=== PATIENT | female | born 1980 | race Caucasian/White ===

== ENCOUNTER 2020-06-25 09:04 | Emergency (ER) | payer OTHER, BC, SELFPAY ==
[2020-06-25 09:18] VITALS: BP 110/66; PULSE 78; RESP 20; TEMP 36.5; O2SAT 100
--- NOTE | 2020-06-25 09:28 | ED.SKABFB ---
HPI - Skin/Abscess/Foreign Bdy General Chief complaint: Skin/Abscess/Foreign Body Stated complaint: rash Time Seen by Provider: 06/25/20 09:30 Source: patient Mode of arrival: ambulatory Limitations: no limitations History of Present Illness HPI narrative: Frances Romo is a 39 yo female with no PMH who comes here with a red rash around her mid drift bilaterally that is both itchy and uncomfortable it started on Tuesday. She has not used anything on the rash to this point because she wanted to make sure that we saw it without being treated Related Data Allergies Allergy/AdvReac Type Severity Reaction Status Date / Time Penicillins Allergy Unknown Swelling Verified 06/25/20 09:17 of Lip/Tongue/Throat metoclopramide AdvReac Unknown Other Verified 06/25/20 09:17 Review of Systems Review of Systems: Narrative: CONSTITUTIONAL: Denies fever, chills, sweats. EYES: Denies visual changes, redness, discharge. ENT: Denies rhinorrhea, congestion, sore throat, otalgia. CARDIOVASCULAR: Denies chest pain, palpitations, edema. RESPIRATORY: Denies dyspnea, wheezing, cough GASTROINTESTINAL: Denies abdominal pain, nausea, vomiting, diarrhea. GENITOURINARY: Denies dysuria, hematuria, abnormal discharge SKIN: Rash along mid drift bilaterally-red and raised NEUROLOGIC: Denies numbness, or focal weakness. PSYCHIATRIC: Denies anxiety or depression. [facility] Past Medical History Medical History No acute medical problems Family History Family History Mother Hypertension Social History Social History (Updated 06/25/20 @ 09:44 by Marry Tucker CNP) Smoking status: Never smoker Alcohol intake: current Comments At time of signature, I agree with nursing past medical, surgical, social and family history. There is no relevant family history pertinent to the presenting complaint. Exam Narrative: Exam Narrative: GENERAL: This is a well-nourished, well-developed patient, in mild distress. HEAD: normocephalic, atraumatic. EYES: Sclera clear/white. Vision is grossly intact. EARS: External ears normal, Hearing grossly intact. NOSE: External nose normal without nasal discharge, nares without redness, no rhinorrhea. THROAT: Mucous membranes moist, NECK: Neck supple, non-tender CARDIOVASCULAR: Regular rate and rhythm without murmurs, gallops, or rubs. RESPIRATORY: Clear to auscultation. Breath sounds equal bilaterally. No wheezes, rales, or rhonchi. GASTROINTESTINAL: Abdomen soft, SKIN: warm, intact with no suspicious lesions or rash, good texture and turgor. Red papules on the mid drift bilaterally, pruritic NEURO: awake, alert, and oriented to person, place and time. There were no obvious focal neurologic abnormalities. Steady gait EXTREMITIES: Normal range of motion. BACK: Nontender without deformity Course Course Emergency Course: Patient came to [facility] care with red pruritic rash along the mid drift that started a few days ago Started on Medrol Dosepak and hydrocortisone and Benadryl cream Follow-up with primary care Vital Signs Vital signs: Vital Signs Temperature 97.7 F 06/25/20 09:18 Pulse Rate 78 06/25/20 09:18 Respiratory Rate 20 06/25/20 09:18 Blood Pressure 110/66 06/25/20 09:18 Pulse Oximetry 100 06/25/20 09:18 Temperature 97.7 F 06/25/20 09:18 Pulse Rate 78 06/25/20 09:18 Respiratory Rate 20 06/25/20 09:18 Blood Pressure 110/66 06/25/20 09:18 Pulse Oximetry 100 06/25/20 09:18 MDM - Skin/Abscess/Foreign Bdy Differential Diagnosis Differential diagnosis: Likely abscess of skin or subcutaneous tissue, eczema, contact dermatitis and other Discharge Plan Discharge Clinical Impression: Contact dermatitis Qualifiers: Contact dermatitis type: irritant Contact dermatitis trigger: unspecified trigger Qualified Code(s): L24.9 - Irritant contact dermatitis,
== END 2020-06-25 09:54 | disposition home or self-care (01) ==
PROVIDERS: Emergency Provider Nurse Practitioner
DX: L24.9 Irritant contact dermatitis, unspecified cause (principal)
CPT/HCPCS: 99213; G0463

== ENCOUNTER 2024-02-12 12:16 | Emergency (ER) | payer OTHER, BC, SELFPAY ==
[2024-02-12 12:26] VITALS: BP 142/80; PULSE 74; RESP 16; TEMP 37.1; O2SAT 100
--- NOTE | 2024-02-12 12:26 | ED.GENADULT ---
HPI - General Adult General Chief complaint: Skin/Abscess/Foreign Body Stated complaint: R KNEE LACERATION Time Seen by Provider: 02/12/24 12:32 Source: patient, RN notes reviewed and old records reviewed Mode of arrival: ambulatory Limitations: no limitations History of Present Illness HPI narrative: patient presents with complaints of right knee wound. She reports that she fell in a reinforced in [place] about 5 days ago, has since soaked in a hot tub. She reports that she is noticing increased pain and some purulent drainage from the site. She is up-to-date on her tetanus. She denies all other injury and trauma. She denies fever, chills, sweats. With no other concerns or complaints today Related Data Home Medications Medication Instructions Recorded Confirmed bupropion HCl 150 mg 24 hr tablet, mg PO 02/12/24 extended release fluoxetine 20 mg capsule mg 02/12/24 naltrexone 50 mg tablet mg 02/12/24 02/12/24 Allergies Allergy/AdvReac Type Severity Reaction Status Date / Time Penicillins Allergy Unknown Swelling Verified 06/25/20 09:17 of Lip/Tongue/Throat metoclopramide AdvReac Unknown Other Verified 06/25/20 09:17 Review of Systems Review of Systems: All systems reviewed & are unremarkable except as noted in HPI and below Constitutional: Constitutional: Reports no additional constitutional complaints ENT: Reports system reviewed and no additional complaints, except as documented Cardiovascular: Cardiovascular: Reports no additional cardiovascular complaints Respiratory: Respiratory: Reports no additional respiratory complaints Gastrointestinal: Gastrointestinal: Reports no additional gastrointestinal complaints Integumentary/Breasts: Skin/Breast: Reports wounds ( right knee, shallow) [facility] Past Medical History Medical History No acute medical problems Family History Family History Mother Hypertension Social History Social History Smoking status: Never smoker Alcohol intake: current Comments At the time of my signature, I reviewed and agree with the nursing past medical, surgical, social, and family history. There is no relevant family history pertinent to the patient complaint. Exam Const: General: cooperative, no acute distress, alert and awake Orientation/consciousness: oriented to person, oriented to place and oriented to time HENMT: Head: normal to inspection Resp: Effort & Inspection: normal respiratory effort and able to speak in complete sentences Auscultation: clear to auscultation bilaterally, no crackles, no rales, no rhonchi and no wheezes Cardio: Palpation: normal PMI Rate: regular rate Rhythm: regular rhythm Heart sounds: S1 normal heart sound present and S2 normal heart sound present Skin: Other: there is a wound with a flap to the right knee, approximately 1 cm. Reddened around the edges, small amount purulent drainage coming from the wound. Full range of motion to the affected knee Neuro: General: oriented to person, oriented to place and oriented to time Cranial nerves: Yes CN's II-XII intact bilaterally Psych: Appearance: grossly normal Thought process: Normal thought process present Insight: Good insight present (Psych) Judgement: Good judgement present (Psych) Course Course Level of Care: Express Care Visit Vital Signs Vital signs: Reviewed Medical Decision Making MDM Narrative Medical decision making narrative: shallow wound to right knee, visible signs of infection. Full range of motion is retained. Start clindamycin. Follow-up with primary care provider, emergency department for new or worsening symptoms. Elevated blood pressure discussed Discharge instructions reviewed with patient, as well as provided in writing per nursing staff. The instructions
[2024-02-12 12:28] VITALS: BP 142/80; PULSE 74; RESP 16; TEMP 37.1; O2SAT 100
== END 2024-02-12 12:40 | disposition home or self-care (01) ==
PROVIDERS: Emergency Provider Nurse Practitioner Family
DX: S81.001A Unspecified open wound, right knee, initial encounter (principal); L08.9 Local infection of the skin and subcutaneous tissue, unspecified; W19.XXXA Unspecified fall, initial encounter
CPT/HCPCS: 99203; G0463

== ENCOUNTER 2025-03-27 14:57 | Emergency (ER) | payer OTHER, BC, SELFPAY ==
--- NOTE | 2025-03-27 14:58 | ED_ITS ---
HPI - General Adult General Chief complaint: Upper Respiratory Infection Stated complaint: SORE THROAT Time Seen by Provider: 03/27/25 14:58 Source: patient Mode of arrival: ambulatory Limitations: no limitations History of Present Illness HPI narrative: Pt is a 44 y/o female presenting with URI sx. Sx reported include sore throat, postnasal drip, congestion, rhinorrhea. Sx began 3 days ago. NO known exposure to COVID, flu, strep, PNA however, she is an principal cloud architect. Tx initiated [employer] includes tylenol. No additional complaints Related Data Home Medications ?Medication ?Instructions ?Recorded ?Confirmed ?Last Taken ?Type bupropion HCl 150 mg 24 hr tablet, mg PO 02/12/24 Unk nown History extended release fluoxetine 20 mg capsule mg 02/12/24 Unknown History hydroxyzine HCl 25 mg tablet mg 03/27/25 Unknown Hist ory Allergies Allergy/AdvReac Type Severity Reaction Status Date / Time Penicillins Allergy Unknown Swelling Verified 03/27/25 14:59 of Lip/Tongue/Throat metoclopramide AdvReac Unknown Other Verified 03/27/25 14:59 Review of Systems Review of Systems: CONSTITUTIONAL: Denies body aches, fever, chills, or sweats. EYES: Denies visual changes, redness, or discharge. ENT: Reports rhinorrhea, congestion, sore throat, denies otalgia. CARDIOVASCULAR: Denies chest pain, palpitations, or edema. RESPIRATORY: Denies cough or dyspnea. GASTROINTESTINAL: Denies abdominal pain, nausea, vomiting, or diarrhea. GENITOURINARY: Denies dysuria or hematuria. SKIN: Denies rash, itching, or wounds. MUSCULOSKELETAL: Denies back pain, joint pain, or myalgia. NEUROLOGIC: Denies headache, numbness, tingling, or weakness. PSYCH: Denies depression or anxiety. All systems reviewed & are unremarkable except as noted in HPI and below PMFSH Past Medical History Medical History No acute medical problems Family History Family History Mother Hypertension Social History Social History Smoking status: Never smoker Alcohol intake: current Exam Narrative: GENERAL: Well-appearing, well-nourished, and in no acute distress. HEAD: Normocephalic, atraumatic. EYES: EOMI. No redness or drainage. Conjunctivae normal. ENT: Mucous membranes pink and moist. Nares clear. No rhinorrhea. TMs normal bilaterally. Throat normal. Uvula midline. NECK: Normal AROM. Supple. No lymphadenopathy. CHEST: No respiratory distress. Clear to auscultation. HEART: Regular rate and rhythm. No murmur appreciated. Normal peripheral pulses. ABDOMEN: Soft, nontender, nondistended, normal active bowel sounds. MUSCULOSKELETAL: No bony tenderness. EXTREMITIES: Normal range of motion. No edema. SKIN: Warm, dry, no rash. Capillary refill normal. Normal skin turgor. NEURO: No focal deficits. Alert and oriented x3. Gait steady. PSYCH: Normal affect. No signs of depression or anxiety. Course Course Level of Care: Express Care Visit Vital Signs Vital signs: Vital Signs Temperature 97.7 F 03/27/25 15:08 Pulse Rate 96 03/27/25 15:08 Respiratory Rate 16 03/27/25 15:08 Blood Pressure 111/62 03/27/25 15:08 Pulse Oximetry 100 03/27/25 15:08 Temperature 97.7 F 03/27/25 15:08 Pulse Rate 96 03/27/25 15:08 Respiratory Rate 16 03/27/25 15:08 Blood Pressure 111/62 03/27/25 15:08 Pulse Oximetry 100 03/27/25 15:08 Medical Decision Making Vital Signs Vital Signs: Vital Signs Temperature 97.7 F 03/27/25 15:08 Pulse Rate 96 03/27/25 15:08 Respiratory Rate 16 03/27/25 15:08 Blood Pressure 111/62 03/27/25 15:08 Pulse Oximetry 100 03/27/25 15:08 Temperature 97.7 F 03/27/25 15:08 Pulse Rate 96 03/27/25 15:08 Respiratory Rate 16 03/27/25 15:08 Blood Pressure 111/62 03/27/25 15:08 Pulse Oximetry 100 03/27/25 15:08 Lab Data Lab results reviewed: Yes I reviewed the patient's lab results. Labs: Group a strep rapid negative Discharge Plan Discharge Clinical Impression: Upper respiratory infection Qualifiers: URI type: acute nasopharyngitis (common cold) Qualified Code(s): J00 - Acute nasopharyngitis [common cold] Patient Disposition: Home Condition: Stable Instructions: Antibiotic Form, Cold Symptoms (ED) Additional Instructions: Go straight to ER should your symptoms become worse or should any new symptoms develop Patient Language: Irish Prescriptions: No Action hydroxyzine HCl 25 mg tablet fluoxetine 20 mg capsule bupropion HCl 150 mg tablet extended release 24 hr PO Follow-up/Referrals: UNKNOWN,DOCTOR [Non-Staff] - 03/28/25 Time of Disposition: 15:14
[2025-03-27 15:08] VITALS: BP 111/62; PULSE 96; RESP 16; TEMP 36.5; O2SAT 100
[2025-03-27 15:22] LABS: EDSTREPNEGPOS1 Negative (Negative)
== END 2025-03-27 15:20 | disposition home or self-care (01) ==
PROVIDERS: Emergency Provider Registered Nurse
DX: J00 Acute nasopharyngitis [common cold] (principal)
CPT/HCPCS: 87880; 99212; G0463